=== PATIENT | male | born 1990 | race Caucasian/White ===

== ENCOUNTER 2022-12-24 14:21 | Outpatient (CLI) | payer BC, SELFPAY ==
--- NOTE | 2022-12-24 | MR_ITS ---
WS: [id number] MRI OF THE PELVIS WITHOUT GADOLINIUM ENHANCEMENT. INDICATION: RIGHT hip flexor TECHNIQUE: Axial T1, T2 fat sat, coronal T1, coronal T2 fat sat, coronal STIR, sagittal T2 fat sat. FINDINGS: Normal bone marrow signal in the pelvis and sacrum. Lower lumbar spine appears normal. Prox imal hips are normal in appearance. Normal pubic rami. No sacral fractures or sacral edema. No evidence of RIGHT inguinal hernia. No herniated bowel. No inguinal lymphadenopathy. Normal sigmoid colon. Normal bone marrow signal and both hips. Mild facet arthropathy in the lower lumbar spine. No other suspicious findings. MR/MR pelvis wo con* [id number] IMPRESSION: 1. Normal bone marrow signal in the bony pelvis and sacrum. Normal bone marrow signal in both hips. 2. No evidence of inguinal hernia or inguinal lymphadenopathy. 3. Mild facet arthropathy lower lumbar spine. 4. No other suspicious findings.
== END 2022-12-24 14:22 | disposition home or self-care (01) ==
PROVIDERS: PCP Family Medicine; Visit Provider Family Medicine
DX: R10.9 Unspecified abdominal pain (principal); M47.816 Spondylosis without myelopathy or radiculopathy, lumbar region
CPT/HCPCS: 72195